=== PATIENT | male | born 1990 | race Caucasian/White ===

== ENCOUNTER 2020-01-07 13:22 | Emergency (ER) | payer SELFPAY ==
[~2020-01-07] VITALS: Ht 170.2 cm; Wt 66.4 kg
[2020-01-07] MEDS ORDERED: LIDOCAINE-MPF 1%, 5ML ONE (13:45)
== END 2020-01-07 14:11 | disposition home or self-care (01) ==
LOC: ED 14:06
DX: S01.541A Puncture wound with foreign body of lip, initial encounter (principal); X58.XXXA Exposure to other specified factors, initial encounter; Y93.89 Activity, other specified; Y92.89 Other specified places as the place of occurrence of the external cause; Y99.8 Other external cause status
CPT/HCPCS: 99284